=== PATIENT | male | born 1975 | race Caucasian/White ===

== ENCOUNTER 2018-12-22 22:50 | Emergency (ER) | payer OTHER, MEDICARE ==
[2018-12-22] MEDS ORDERED: Take Home: Cyclobenzaprine 10 MG Tab, 4 Tab Pack PO ONE (23:54)
[2018-12-23] MEDS ORDERED: Ibuprofen 200 MG Tab PO ONE (00:07)
--- NOTE | 2018-12-23 08:32 | CT ---
[id number] CT/CT Head WO IV EXAM: CT Head WO IV CLINICAL DATA: FELL LAST NIGHT, UNKNOWN LOC COMPARISON STUDY: None. FINDINGS: No intracranial hemorrhage, extra-axial fluid collection, mass, or acute ischemia. No hydrocephalus. Paranasal sinuses and mastoid air cells are clear. IMPRESSION: No acute intracranial findings. Mateusz Navarrete MD 12/23/18 0831 Thank you for allowing us to participate in the care of your patient.
--- NOTE | 2018-12-23 08:34 | CT ---
[id number] CT/CT Cervical Spine WO IV EXAM: CT Cervical Spine WO IV INDICATION: FELL LAST NIGHT, HX OF PREVIOUS NECK FRACTURE COMPARISON: September 2012. DISCUSSION: No fracture or compression deformity. Vertebral bodies remain in normal alignment. 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 Post surgical change from posterior decompression at the posterior fossa and level of C1. No prevertebral soft tissue edema. Lung apices are clear. IMPRESSION: No acute findings in the cervical spine. Other findings are described above. Mateusz Navarrete MD 12/23/18 0833 Thank you for allowing us to participate in the care of your patient.
--- NOTE | 2018-12-24 07:53 | EDM.PDOC ---
ED HPI GENERAL MEDICAL PROBLEM - General Chief Complaint: Neck Problem Stated Complaint: FELL DOWN THE STAIRS, HURT NECK Time Seen by Provider: 12/22/18 22:55 Source of Information: Reports: Patient - History of Present Illness INITIAL COMMENTS - FREE TEXT/NARRATIVE: Pt. presents to ER with complaints of head and neck pain. Pt. states that he fell down 5 stairs last night. He states that he was intoxicated and fell. He did have a positive LOC. He recalls getting off the ground and going upstairs to bed. Pt. has a history of previous cervical fracture with decompression at the level of C1. He states that he has increased pain with movement of the neck, and appreciates some crepitus in the neck with movement. He states that he often has this and has a history of arthritis in his neck, but feels it is worse than normal. Denies numbness/tingling in extremities. No chest pain or shortness of breath. No nausea of vomiting. No difficulty with speech or ambulation. Onset Date: 12/21/18 Location: Reports: Head, Neck Quality: Reports: Ache Severity: Moderate Improves with: Reports: Rest Worsens with: Reports: Movement Associated Symptoms: Reports: No Other Symptoms Neck Pain Score (Numeric/FACES): 5 - Related Data Allergies Allergy/AdvReac Type Severity Reaction Status Date / Time paroxetine [From Paxil] Allergy Rash Verified 12/22/18 23:05 Home Meds: Home Meds metFORMIN [Glucophage] 500 mg PO BID 12/22/18 [History] Past Medical History Musculoskeletal History: Reports: Other (See Below) Other Musculoskeletal History: Neck Injuries which include fractures. Endocrine/Metabolic History: Reports: Diabetes, Type II - Past Surgical History GI Surgical History: Reports: Appendectomy Musculoskeletal Surgical History: Reports: Other (See Below) Other Musculoskeletal Surgeries/Procedures:: Back Surgery Social & Family History - Tobacco Use Smoking Status *Q: Never Smoker - Recreational Drug Use Recreational Drug Use: No ED ROS GENERAL - Review of Systems Review Of Systems: See Below Constitutional: Reports: No Symptoms HEENT: Reports: No Symptoms Respiratory: Reports: No Symptoms Cardiovascular: Reports: No Symptoms Endocrine: Reports: No Symptoms GI/Abdominal: Reports: No Symptoms : Reports: No Symptoms Musculoskeletal: Reports: Neck Pain. Denies: Arm Pain, Back Pain Skin: Reports: No Symptoms Neurological: Reports: Headache. Denies: Numbness, Paresthesia, Difficulty Walking, Weakness Psychiatric: Reports: No Symptoms Hematologic/Lymphatic: Reports: No Symptoms Immunologic: Reports: No Symptoms ED EXAM, GENERAL - Physical Exam Exam: See Below Exam Limited By: No Limitations General Appearance: Alert, WD/WN, No Apparent Distress Eye Exam: Bilateral Eye: EOMI, Normal Fundi, Normal Inspection, PERRL Ears: Normal External Exam, Normal Canal, Hearing Grossly Normal, Normal TMs Nose: Normal Inspection, Normal Mucosa, No Blood Throat/Mouth: Normal Inspection, Normal Lips, Normal Teeth, Normal Gums, Normal Oropharynx, Normal Voice, No Airway Compromise Head: Atraumatic, Normocephalic Neck: Normal Inspection, Supple, Limited Range of Motion (due to pain), Tender Lateral, Tender Midline Respiratory/Chest: No Respiratory Distress, Lungs Clear, Normal Breath Sounds, No Accessory Muscle Use, Chest Non-Tender Cardiovascular: Normal Peripheral Pulses, Regular Rate, Rhythm, No Edema, No Gallop, No JVD, No Murmur, No Rub GI/Abdominal: Normal Bowel Sounds, Soft, Non-Tender, No Organomegaly, No Mass (Male) Exam: Deferred Rectal (Males) Exam: Deferred Back Exam: Normal Inspection, Full Range of Motion Extremities: Normal Inspection, Normal Range of Motion, Non-Tender, No Pedal Edema, Normal Capillary Refill Neurological: Alert, Oriented, CN II-XII Intact, Normal Cognition, Normal Gait, Normal Reflexes, No Motor/Sensory Deficits Psychiatric: Normal Affect, Normal Mood Skin Exam: Warm, Dry, Intact, Normal Color, No Rash Lymphatic: No Adenopathy Course - Vital Signs Last Recorded V/S: Last Vital Signs Temp 37.1 C 12/22/18 23:08 Pulse 102 H 12/22/18 23:08 Resp 16 12/22/18 23:08 BP 134/88 12/22/18 23:08 Pulse Ox 97 12/22/18 23:08 - Orders/Labs/Meds Meds: Medications Discontinued Medications Generic Name Dose Route Start Last Admin Trade Name Klaus PRN Reason Stop Dose Admin Cyclobenzaprine HCl 1 packet 12/22/18 23:54 12/23/18 00:03 Take Home: Cyclobenzaprine 10 Mg, 4 Tab Pack PO 12/22/18 23:55 1 packet ONETIME ONE Administration Ibuprofen 800 mg 12/23/18 00:07 12/23/18 00:09 Motrin PO 12/23/18 00:08 800 mg ONETIME ONE Administration - Radiology Interpretation Free Text/Narrative:: No acute pathology noted to brain on c-spine on CT Departure - Departure Time of Disposition: 00:15 Disposition: Home, Self-Care 01 Condition: Good Clinical Impression: Closed head injury, Cervical arthritis, Cervical sprain - Discharge Information Instructions: Cyclobenzaprine tablets, Head Injury, Adult, [id number], Cervical Sprain, [id number] Referrals: Tip Mishra NP [Primary Care Provider] - Forms: ED Department Discharge Additional Instructions: Cyclobenzaprine 10mg 1 tab three times daily as needed for neck spasm Ibuprofen 200mg 3 tabs every 6 hours as needed for pain Follow-up with PCP if not gradually improving. - Assessment/Plan Plan: Cyclobenzaprine 10mg 1 tab three times daily as needed for neck spasm Ibuprofen 200mg 3 tabs every 6 hours as needed for pain Follow-up with PCP if not gradually improving.
== END 2018-12-23 00:10 | disposition home or self-care (01) ==
LOC: VM.ED 22:50
DX: S06.9X9A Unspecified intracranial injury with loss of consciousness of unspecified duration, initial encounter (principal); S13.4XXA Sprain of ligaments of cervical spine, initial encounter; M46.92 Unspecified inflammatory spondylopathy, cervical region; E11.9 Type 2 diabetes mellitus without complications; Z79.84 Long term (current) use of oral hypoglycemic drugs; Z88.8 Allergy status to other drugs, medicaments and biological substances; W10.9XXA Fall (on) (from) unspecified stairs and steps, initial encounter
CPT/HCPCS: 70450; 72125; 99284; A9270